=== PATIENT | male | born 1970 | race Caucasian/White ===

== ENCOUNTER 2016-10-20 15:26 | Inpatient (IN) | payer MEDICAID ==
[~2016-10-20] VITALS: Ht 175.3 cm; Wt 115.0 kg
[~2016-10-20 15:26] MED LIST: ALDACTONE100 MG PO; DILAUDID2 MG PO; ENULOSE10 G/15 ML PO; LIBRIUM25 MG PO; PROTONIX40 MG PO
[2016-10-20 16:02] LABS: BASOPHILS 0.1 % (0.0-2.0); EOSINOPHILS 0.4 % (0-7); HEMATOCRIT 51.3 % (42.0-54.0); IMMATURE GRANULOCYTES 1.1 % (0-5); LYMPHOCYTES 3.9 % (15-50); MCH 32.9 pg (26.0-34.0); MCHC 35.1 g/dL (31.0-37.0); MCV 93.8 fL (80.0-100.0); MEAN PLATELET VOLUME 10.6 fL (7.4-10.4); MONOCYTES 1.2 % (2-11); NEUTROPHILS 93.3 % (40-80); PLATELET COUNT 78 10x3/uL (130-400); RBC 5.47 10x6/uL (4.20-6.10); RDW 13.6 % (11.5-14.5); WBC 9.3 10x3/uL (4.8-10.8)
[2016-10-20 16:13] LABS: ALBUMIN 2.8 g/dL (3.4-5.0); ANION GAP 16.3 mmol/L (8-16); BILIRUBIN - TOTAL 5.16 mg/dL (0.2-1.3); CALCIUM 9.9 mg/dL (8.5-10.1); CARBON DIOXIDE 23.4 mmol/L (21.0-32.0); CREATININE - SERUM 2.4 mg/dL (0.6-1.3); POTASSIUM - SERUM 4.7 mmol/L (3.5-5.1); PROTEIN - SERUM 6.4 g/dL (6.4-8.2)
[2016-10-20 16:36] LABS: PLATELET ESTIMATE DECREASED
[2016-10-20 17:04] LABS: APPEARANCE HAZY (CLEAR); BILIRUBIN NEGATIVE (NEGATIVE); COLOR YELLOW (YELLOW); GLUCOSE 250 mg/dL (NEGATIVE); KETONE NEGATIVE (NEGATIVE); LEUKOCYTE ESTERASE TRACE (NEGATIVE); NITRITE NEGATIVE (NEGATIVE); PROTEIN TRACE mg/dL (NEGATIVE); UROBILINOGEN NORMAL (NORMAL)
[2016-10-20 17:07] LABS: BACTERIA FEW /hpf (NONE SEEN); HYALINE CAST 0-5 /lpf (NONE SEEN); MUCUS <1+ /lpf (NONE SEEN); RED CELLS - URINE 0-5 /hpf (0-5)
[2016-10-20 19:15] VITALS: BP 86/63
--- NOTE | 2016-10-20 19:55 | NUR ---
PT ARRIVED TO ROOM WITH ER STAFF. PT IS VERY LETHARGIC AND TIRED. PT DENIES ANY CURRENT PAIN BUT IS ALSO FALLING ASLEEP IN BETWEEN QUESTIONS. PUPILS ARE SLIGHTLY CONSTRICTED AT 3 BUT PERRLA INTACT. RR NONLABORED ON RA BUT O2 SAT READING 90. APPLIED 2L NC AND PTS O2 SAT JUMPED UP TO 93%. APPLIED TELEMETRY PT RUNNING SINUS TACH @102. TEMP 98.5. BP LOW AT 71/44 VIA L.ARM. RETOOK IN R.ARM AND BP 89/60. PT HAS ROCEPHIN INFUSING VIA R.HAND PIV ACCESS DRSG CDI AND SWAB CAPS PLACED. WILL CONTINUE WITH ADMISSION WORK-UP AND MONITER VITALS CLOSELY.
--- NOTE | 2016-10-20 20:24 | NUR ---
PT STILL VERY LETHARGIC AND WILL NOT STAY AWAKE ENOUGH FOR HX ASSESSMENT. PTS BP DID GO UP TO 91/58 HR 104 SINUS TACH STILL. O2 SAT 93% WITH NC @2L. PULLED NS TO FLUSH ROCEPHIN AND RUN MAINTENANCE FLUIDS. INFUSING VIA R.HAND PIV @75ML/HR. WILL CONTINUE TO MONITER VS CLOSELY AND MAKE SURE BP DOESNT DROP ANY MORE. PT DENIES ANY PAIN OR FURTHER NEEDS AND WANTS TO SLEEP. CL IN REACH, BED IN LOWEST, SIDE RAILS X2 AND BUILT IN BED ALARM ON. WILL CPOC.
[2016-10-20 21:13] VITALS: BP 101/61
[2016-10-20 21:46] VITALS: BP 89/50; BMI 36.2
--- NOTE | 2016-10-20 23:51 | NUR ---
STAT AMMONIA ORDERED R/T PTS LIVER FX AND CIRRHOSIS. PTS BP STILL LOW, LAST READING 81/57. PT IS ORIENTED X4 BUT HAS RANDOM THOUGHTS/STATEMENTS AT TIMES AND DOESNT MAKE SENSE HOWEVER MOSTLY ORIENTED AND LETHARGIC. NO FURTHER NEEDS AT THIS TIME. CL IN REACH, BED IN LOWEST, SIDE RAILS X2, WILL CTM.
[2016-10-21] VITALS (26 sets, daily range): BP systolic 78–122; BP diastolic 42–99
--- NOTE | 2016-10-21 00:16 | NUR ---
PTS AMMONIA LAB RESULTED @132 AND CRITICALLY HIGH. NOTIFIED CANAL LOCK TENDER CHIEF OPERATOR AND AWAITING ORDERS FROM ER DOCTOR. WILL CTM.
--- NOTE | 2016-10-21 01:15 | NUR ---
PT TOSSING AND TURNING IN BED C/O SEVERE ABDOMINAL PAIN REQUESTING SOMETHING FOR PAIN. NO MEDS AVAILABLE WILL CALL ORANGE PICKING SUPERVISOR AND TRY TO RECIEVE ORDER. LACTULOUS WAS ORDERED FOR CH AMMONIA LEVEL AND NOW WAITING ON THE MED TO BE AVAILABLE TO GIVE. WILL CTM CLOSELY.
--- NOTE | 2016-10-21 01:45 | NUR ---
STILL WAITING ON LACTULOUS TO BE OVERRIDDEN BY RUG SETTER AXMINSTER. PT IN SEVERE PAIN BUT NO MEDS AVAILABLE TO GIVE. WILL CTM.
--- NOTE | 2016-10-21 02:01 | NUR ---
ADMINISTERED ORDERED DOSE OF LACTULOUS. PT VERY SICK TO HIS STOMACH AND IN SEVERE PAIN. CALLED ATTENDING AMBULATORY CARE WAITING ON ANTI-NAUSEA MEDS. WILL CTM.
--- NOTE | 2016-10-21 02:04 | NUR ---
PT JUST VOMITED, STILL WAITING ON MEDICAL HISTORIAN FOR ZOFRAN TO BE OVERRODE. PROVIDED PT WITH A FAN TO COOL HIM OFF AND A COLD WASH CLOTH ON HIS FOREHEAD. CL IN REACH, FIANCE AT BEDSIDE. WILL CTM.
--- NOTE | 2016-10-21 05:44 | NUR ---
PT C/O SEVERE ABDOMINAL PAIN TOSSING AND TURNING AND BECOMING VERY AGITATED. ROLL MILL OPERATOR AWARE AND STATED SHE IS GETTING SOMETHING ORDERED. HOWEVER PTS BP STILL VERY LOW HAS NOT BEEN HIGHER THAN 80S-90S. PROVIDED NON-PHARM RELIEF MEASURES AND WILL CONTINUE WITH PLAN OF CARE.
[2016-10-21 06:25] LABS: HEMATOCRIT 43.6 % (42.0-54.0); HEMOGLOBIN 14.9 g/dL (13.5-17.5); MCH 32.6 pg (26.0-34.0); MCHC 34.2 g/dL (31.0-37.0); MCV 95.4 fL (80.0-100.0); MEAN PLATELET VOLUME 11.8 fL (7.4-10.4); PLATELET COUNT 62 10x3/uL (130-400); RBC 4.57 10x6/uL (4.20-6.10); RDW 14.1 % (11.5-14.5); WBC 22.1 10x3/uL (4.8-10.8)
[2016-10-21 06:35] LABS: ANION GAP 19.2 mmol/L (8-16); CALCIUM 8.5 mg/dL (8.5-10.1); CARBON DIOXIDE 20.6 mmol/L (21.0-32.0); CREATININE - SERUM 2.4 mg/dL (0.6-1.3); POTASSIUM - SERUM 4.8 mmol/L (3.5-5.1)
--- NOTE | 2016-10-21 06:36 | NUR ---
ADMINISTERED DEMEROL FOR SEVERE ABDOMINAL PAIN. BP STABLE AT 100/58. PT VOIDED 250 OF BLOODY COLORED URINE.
[2016-10-21 07:07] LABS: LYMPHOCYTES 5 % (15-50); MONOCYTES 3 % (2-11); NEUTROPHILS 53 % (40-80); PLATELET ESTIMATE DECREASED
--- NOTE | 2016-10-21 07:15 | NUR ---
RECEIVED REPORT. ASSUMED CARE OF PATIENT. PATIENT SITTING UP TO SIDE OF BED. ALERT/ORIENTED. PATIENT STATES SITTING UP AND LEANING OVER BEDSIDE TABLE IS THE ONLY ACTION THAT WILL RELIEVE HIS ABD PAIN. CALL LIGHT WITHIN REACH. FEMALE ASLEEP IN BEDSIDE CHAIR. NO ACUTE DISTRESS.
--- NOTE | 2016-10-21 10:30 | NUR ---
PATIENT ROLLED OVER AND PULLED IV OUT OF RIGHT HAND. 22 GAUGE CATHETER TIP INTACT. 20 GAUGE IV PLACED TO LEFT FOREARM X 1 STICK, GOOD BLOOD RETURN, EASY FLUSH. TAPED, DATED AND SECURED. IV FLUIDS INFUSING AT 125ML/HR AT THIS TIME. NO DISTRESS.
--- NOTE | 2016-10-21 11:17 | NUR ---
PATIENT TRANSFERRED TO ICU AT THIS TIME AFTER RAPID RESPONSE INITIATED.
--- NOTE | 2016-10-21 12:10 | NUR ---
RECIEVED TO ROOM 2304 VIA BED FROM [facility] 2. ALERT AND ORIENTED. STATES HIS DECISION MAKING PERSON SHOULD BE SHAGUFTA POSADAS IN THE EVENT HE CANT MAKE DECISIONS FOR HIMSELF. WITNESSED BY ESHA TUCKER. STATES HE USED IV METH 3 DAYS AGO BUT DID NOT USE ANY TODAY. STATES HE HAS A PAST "PROBLEM WITH ALCOHOL" AND THIS WAS GOING TO BE THE LAST TIME HE USED METH. ATIVAN GIVEN PER ORDER SEE MAR. [place] CATH PLACED. IVF BOLUS INFUSING. CONSULTING 'S AT BEDSIDE DISCUSSING CARE.
--- NOTE | 2016-10-21 12:15 | NUR ---
SPOKE WITH DR. BAKER FOR LINE PLACEMENT.
[2016-10-21 12:26] LABS: CKMB 12.8 U/L (0.0-3.6); CREATINE KINASE 419 UL (21-232)
[2016-10-21 12:31] LABS: TROPONIN-I 0.088 ng/mL (0.000-0.060)
--- NOTE | 2016-10-21 13:00 | NUR ---
NGT PLACED TO RIGHT NARE.
[2016-10-21 13:27] LABS: UDS - AMPHET POSITIVE QUAL (NEGATIVE); UDS - BARB NEGATIVE QUAL (NEGATIVE); UDS - BENZO POSITIVE QUAL (NEGATIVE); UDS - COCAINE NEGATIVE QUAL (NEGATIVE); UDS - METH NEGATIVE QUAL (NEGATIVE); UDS - OPIATE POSITIVE QUAL (NEGATIVE); UDS - PCP NEGATIVE QUAL (NEGATIVE); UDS - THC POSITIVE QUAL (NEGATIVE)
--- NOTE | 2016-10-21 17:15 | NUR ---
BED BATH AND LINEN CHANGE COMPLETED.
[2016-10-21 17:58] LABS: CKMB 10.9 U/L (0.0-3.6); CREATINE KINASE 324 UL (21-232)
[2016-10-21 18:01] LABS: TROPONIN-I 0.167 ng/mL (0.000-0.060)
--- NOTE | 2016-10-21 18:05 | NUR ---
DR. SUTTON NOTIFIED OF INCREASE IN TROPONIN. NO NEW ORDERS.
--- NOTE | 2016-10-21 18:40 | NUR ---
CVL PLACEMENT AT BEDSIDE WITH DR. BAKER. STAT CXR ORDERED. PT TOLERATED WELL.
--- NOTE | 2016-10-21 19:30 | NUR ---
REPORT RECEIVED AND CARE ASSUMED. INITIAL SHIFT ASSESSMENT COMPLETED. PT AAOX4. SPEECH CLEAR DENIES PAIN SCD'S APPLIED AND RATIONALE EXPLAINED. PT VERBALIZED COMPREHENSION. RIGHT IJ REMAINS UNACCESSED AWAITING CONFIRMATION OF PLACEMENT. ORDERS RECEIVED TO DECREASE NS RATE TO KVO AND WILL START BICARB GTT WHEN LINE PLACEMENT RECEIVED. NGT TO RIGHT NARE TO LIS WITH 450 OF ORANGE TINGED OUTPUT IN CANNISTER. F/C PATENT WITH CONCENTRATED COLEMAN URINE PRESENT
--- NOTE | 2016-10-21 19:45 | NUR ---
CONSENT TO USE CVL RECEIVED. SODIUM BICARB RESTARTED
--- NOTE | 2016-10-21 21:00 | NUR ---
VISITOR AT BEDSIDE. SECURITY CODE WORD ESTABLISHED. QUESTIONS ANSWERED AND UPDATE GIVEN
--- NOTE | 2016-10-21 21:50 | NUR ---
PT TRANSFERRED TO ROOM 2312. GIRLFRIEND WHO WAS HERE AT 2100 VISITING HOUR WAS TOLD OF PENDING TRANSFER
--- NOTE | 2016-10-21 22:15 | NUR ---
CVP SET UP LEVELED AND ZEROED INITIAL READING OF 19
--- NOTE | 2016-10-21 22:28 | NUR ---
CALL RECEIVED FROM FEMALE. UNABLE TO VERIFY SECCURITY CODE WORD. PT SLEEPING.
[2016-10-21 22:39] LABS: CREATINE KINASE 243 UL (21-232)
[2016-10-21 22:41] LABS: TROPONIN-I 0.325 ng/mL (0.000-0.060)
--- NOTE | 2016-10-21 23:00 | NUR ---
SHIFT REASSESSMENT COMPLETED. NO SIGNIFICANT CHANGES. PT INDEPENDENT WITH TURNING AND REPOSITIONING. CONINUE TO MONITOR B/P CLOSELY.
[2016-10-22] VITALS (26 sets, daily range): BP systolic 85–110; BP diastolic 43–85; Ht 175.3 cm; Wt 115.0 kg
--- NOTE | 2016-10-22 01:00 | NUR ---
PT SLEEPING. NO CHANGES
--- NOTE | 2016-10-22 03:00 | NUR ---
SHIFT REASSESSMENT COMPLETED. PT ADMITS TO TINGLING IN RIGHT FINGERS STATING HE HAS HAD THIS SINCE HIS HOPITAL ADMISSION. THIS IS NOT A NEW FINDING PER PT. PT GIVEN AN ICE BAG PER HIS REQUEST. RESP REG AND NONLABORED
--- NOTE | 2016-10-22 05:00 | NUR ---
LABS DRAWN FROM CVL LINE AND SENT FOR ANALYSIS
[2016-10-22 05:16] LABS: BASOPHILS 0.1 % (0.0-2.0); HEMOGLOBIN 13.3 g/dL (13.5-17.5); IMMATURE GRANULOCYTES 10.2 % (0-5); LYMPHOCYTES 6.4 % (15-50); MCH 32.3 pg (26.0-34.0); MONOCYTES 5.3 % (2-11); RBC 4.12 10x6/uL (4.20-6.10)
[2016-10-22 05:21] LABS: MCV 92.2 fL (80.0-100.0); WBC 13.6 10x3/uL (4.8-10.8)
[2016-10-22 05:22] LABS: PLATELET COUNT 38 10x3/uL (130-400)
[2016-10-22 05:24] LABS: INR 1.86 (0.85-1.17); PROTIME 21.5 SECONDS (11.6-15.0)
[2016-10-22 05:53] LABS: ALBUMIN 2.1 g/dL (3.4-5.0); BILIRUBIN - TOTAL 3.74 mg/dL (0.2-1.3); CALCIUM 7.1 mg/dL (8.5-10.1); CARBON DIOXIDE 23.3 mmol/L (21.0-32.0); MAGNESIUM - SERUM 1.1 mg/dL (1.8-2.4); PHOSPHOROUS 2.4 mg/dL (2.5-4.9); PROTEIN - SERUM 5.2 g/dL (6.4-8.2); THYROID STIMULATING HORMONE 4.06 uIU/mL (0.36-3.74)
[2016-10-22 05:54] LABS: ANION GAP 13.4 mmol/L (8-16); CREATININE - SERUM 1.3 mg/dL (0.6-1.3); POTASSIUM - SERUM 3.7 mmol/L (3.5-5.1)
--- NOTE | 2016-10-22 07:30 | NUR ---
REPORT RECD PT CARE ASSUMED. PT ANSWERS MOST QUESTIONS APPORIATLEY, ALERT AND ORIENTED. S1S2 NOTED SR PER CM. ADVENTICIOUS LUNG SOUNDS BILAT. BOWEL SOUNDS HYPO ACTIVE. SCD/[place] IN PLACE. PT HAS NGT TO LIS. PPP. VSS WILL MONITOR.
--- NOTE | 2016-10-22 09:15 | NUR ---
PT PULLED UP AND REPOSITIONED IN BED. PT TURNS WELL INDEPENDENTLY.
--- NOTE | 2016-10-22 10:47 | NUR ---
CVL DRESSING NO LONGER CLEAN AND INTACT. CVL DRESSING CHANGED WITH STERILE TECHNIQUE.
--- NOTE | 2016-10-22 12:00 | NUR ---
PT FAMILY AT BEDSIDE FOR VISITATION. UPDATE PROVIDED.
--- NOTE | 2016-10-22 14:02 | NUR ---
CLEAN SHEET AND BLANKET PROVIDED TO PT. PT RESTS QUIELY IN BED. PT STATES HE WOULD LIKE TO START PEEING ON HIS OWN. UOP HAS BEEN ACCEPTABLE. WILL START BLADDER TRAINING.
--- NOTE | 2016-10-22 15:45 | NUR ---
PT TAKEN TO HEEL COVER SOFTENER AT THIS TIME.
--- NOTE | 2016-10-22 17:40 | NUR ---
PT [place] D/C AT THIS TIME. PT ABLE TO USE URINAL INDEPENDENTLY. HENRIK CARE PROVIDED AT THIS TIME.
--- NOTE | 2016-10-22 19:15 | NUR ---
REPORT RECEIVED AND CARE ASSUMED. INITIAL SHIFT ASSESSMENT COMPLETED. PT DENIES PAIN DENIES NEEDS. DID ADMIT TO RIGHT HAND DISCOMFORT WHEN AKSED DIRECTLY ABOUT IT. AWAITING PT TO VOID. PT IS MONITORED PER STANDARD ICU PROTOCOL WITH ALL ALARMS SET. RIGHT NELSON NGT LIS. RIGHT IJ WITH DRESSING CDI DATED 10/22/16. FLUIDS PER IV FLOWSHEET AND MAR
--- NOTE | 2016-10-22 20:30 | NUR ---
DR. MELCHOR HERE TO SEE PT. DISCUSSED CONDITION OF PT. NGT TO BE CLAMPED AND PT ALLOWED TO HAVE ICE CHIPS AAT TO CLEAR LIQUIDS PER DR. MELCHOR. PT VERBALIZED COMPREHENSION OF THIS. PT DID VOID CLEAR COLEMAN URINE FREELY, ICE CHIPS PROVIDED AND NGT CLAMPED
--- NOTE | 2016-10-22 20:50 | NUR ---
RADIOLOGY AT BEDSIDE FOR ABD X-RAY. PT TOLERATED PROCEDURE WELL
--- NOTE | 2016-10-22 23:14 | NUR ---
VISITOR AT BEDSIDE FOR BRIEF VISIT
[2016-10-23] VITALS (16 sets, daily range): BP systolic 91–125; BP diastolic 60–93
--- NOTE | 2016-10-23 00:11 | NUR ---
PT SLEEPING RESP REG AND NONLABORED. CONTINUE TO MONITOR
--- NOTE | 2016-10-23 01:23 | NUR ---
PT ATTEMPTING TO GET UP WITH URGENCY OF STOOL. PT ASSISTED WITH ACTIVITY. CVP LINE DC'D. PT CONTINENT OF 500 CC MIXED LIQUID STOOL AND URINE. ASSISTED HOLLINS TO BED CALL LIGHT LEFT IN HAND AND ENCOURAGED TO CALL FOR HELP. BED ALARM REACTIVATED. PT IS TOLERATING ICE CHIPS WELL. GIVEN CUP OF WATER ENCOURAGED TO SIP SLOWLY
--- NOTE | 2016-10-23 03:00 | NUR ---
REASSESSEMENT. NO SIGNIFICANT CHANGES. PT SLEEPING EASILY AWAKEN
--- NOTE | 2016-10-23 04:00 | NUR ---
PT UP TO BSC TO VOID AND FOR BM. GAIT STEADY NO C/O. CONTINENT OF LIQUID STOOL
--- NOTE | 2016-10-23 04:15 | NUR ---
RADIOLOGY AT BEDSIDE FOR POCKET GRINDER OPERATOR
--- NOTE | 2016-10-23 05:10 | NUR ---
LABS DRAWN FROM DISTAL PORT OF CVL AND SENT TO LAB FOR ANALYSIS. PT IS SLEEPING WITH REG NONLABORED RESPIRATIONS
[2016-10-23 05:35] LABS: BASOPHILS 0.2 % (0.0-2.0); HEMATOCRIT 37.1 % (42.0-54.0); HEMOGLOBIN 12.9 g/dL (13.5-17.5); IMMATURE GRANULOCYTES 0.3 % (0-5); LYMPHOCYTES 12.1 % (15-50); MCH 32.3 pg (26.0-34.0); MCHC 34.8 g/dL (31.0-37.0); MEAN PLATELET VOLUME 12.4 fL (7.4-10.4); MONOCYTES 4.5 % (2-11); NEUTROPHILS 80.9 % (40-80); RBC 3.99 10x6/uL (4.20-6.10); WBC 9.2 10x3/uL (4.8-10.8)
[2016-10-23 05:36] LABS: PLATELET COUNT 38 10x3/uL (130-400)
[2016-10-23 06:05] LABS: CALC OSMOLALITY 283 mosm/kg (275-300); CALCIUM 7.7 mg/dL (8.5-10.1); CARBON DIOXIDE 23.8 mmol/L (21.0-32.0); CHLORIDE - SERUM 111 mmol/L (98-107); GLUCOSE 107 mg/dL (74-106); MAGNESIUM - SERUM 1.6 mg/dL (1.8-2.4); PHOSPHOROUS 1.9 mg/dL (2.5-4.9); POTASSIUM - SERUM 4.2 mmol/L (3.5-5.1); SODIUM 142 mmol/L (136-145); eGFR NON AFRICAN AMERICAN 86 mL/min (90-120)
[2016-10-23 06:09] LABS: UREA NITROGEN 15 mg/dL (7-18)
--- NOTE | 2016-10-23 06:57 | NUR ---
LABS REVIEWED ELECTROLYTE PROTOCOL FOLLOWED SEE MAR
--- NOTE | 2016-10-23 07:00 | NUR ---
REPORT RECEIVED. PATIENT IN LEFT LATERAL POSITION IN BED WITH EYES CLOSED. OPENED EYES WHEN SPOKEN TO. ASSESSMENT COMPLETED AT THIS TIME. PATIENT REQUESTED ASSISTANCE TO BSC. ASSISTANCE WAS PROVIDED. DURING THIS TIME IT WAS NOTED THAT NGT WAS SLIGHTLY OUT. DISCUSSED PUTTING IT BACK, BUT THAT IT WOULD PROBABLY COME OUT LATER SINCE HE WAS TOLERATING CLEAR LIQUIDS. AT THAT TIME, PATIENT REMOVED HIS OWN NGT. IT WAS NOT REPLACED.
[2016-10-23 09:12] LABS: HEPATITIS C ANTIBODY >11.0 (0.0-0.9)
--- NOTE | 2016-10-23 11:54 | NUR ---
PATIENT WAS OFFERED A SPONGE BATH. HE STATED HE WOULD LIKE TO TAKE A SHOWER. IT WAS STATED THAT HE MAY NO HAVE A ROOM TODAY. HE SAID HE WAS OK WITH WAITING. HE SAID ALL HE HAS DONE IS LAY IN THE BED AND HE ISN'T "THAT DIRTY". SAID HE WOULD LIKE TO GET SOME "GOOD" SLEEP SINCE THAT TUBE IS OUT OF HIS NOSE.
--- NOTE | 2016-10-23 12:33 | NUR ---
Is the patient Alert and Oriented? Yes 0 * How many steps to enter\exit or inside your home? 3 0 * PCP DR. MAYNARD 0 * Pharmacy [facility] ON [address] 0 * Preadmission Environment Home with Family 0 * ADLs Independent 0 * Equipment None 0 * List name and contact numbers for known caregivers / representatives who currently or will assist patient after discharge: FATHER: BRITTANI HOOPER [phone] KARRI': SIDDHARTHA [phone] 0 * Community resources currently utilized None 0 * Additional services required to return to the preadmission environment? No 0 * Can the patient safely return to the preadmission environment? Yes 0 * Has this patient been hospitalized within the prior 30 days at any hospital? No 0 PATIENT STATES SHE LIVES AT HOME WITH HIS FATHER, BRITTANI. HE STATES HIS FIANCE', SIDDHARTHA, WILL DRIVE HIM HOME AT DISCHARGE. HIS PCP IS DR. SUE MAYNARD. HE GETS HIS MEDS FROM [facility] ON [address]. PATIENT DENEIES USE OF ANY EQUIPMENT AND DENIES EVER HAVING HOME HEALTH CARE. PATIENT STATES THERE ARE 3 STEPS TO ENTER HIS HOME. NO DISHCARGE NEEDS IDENTIFIED AT THIS TIME.
--- NOTE | 2016-10-23 13:05 | NUR ---
PATIENT IN LEFT LATERAL POSITION. WENT TO TAKE LUNCH TRAY FROM ROOM, PATIENT HAS STILL NOT TOUCHED. HE HAS REQUESTED IT BE LEFT FOR AFTER HIS NAP. TRAY LEFT AT THIS TIME.
--- NOTE | 2016-10-23 19:30 | NUR ---
REPORT RECEIVED AND CARE ASSUMED. PT IS AWAITING A ROOM ASSIGNMENT TO BE TRANSFERRED TO THE MEDICAL FLOOR. PT IS AWARE OF THIS. INITIAL SHIFT ASSESSMENT COMPLETED. NO SIGNIFICANT FINDINGS. PT IS CURRENTLY BEING MONITORED PER STANDARD ICU PROTOCOL WITH ALL ALARMS SET
--- NOTE | 2016-10-23 21:00 | NUR ---
VISITORS AT BEDSIDE. PT VISITING FREELY. NO CONCERNS VOICED
--- NOTE | 2016-10-23 22:00 | NUR ---
HS SNACK PROVIDED PT ATE 100%.
--- NOTE | 2016-10-23 23:00 | NUR ---
VS RECHECKED. VSS. PT UP TO BSC USING CALL LIGHT TO REQUEST ASSIST. GAIT STEADY. ASSISTANCE PROVIDED WITH LINES AND CORDS TO ADVOID ENTANGLEMENT. PT CONTINENT OF LIQUID ORANGE TINGED STOOL MIXED WITH URINE. PERICARE DONE INDEPENDENTLY. CALL LIGHT LEFT IN REACH AND BED IS IN LOW POSITION. BED ALARM IS ON.
--- NOTE | 2016-10-24 01:00 | NUR ---
PT UP TO BSC SET UP PROVIDED FOR BATH. PT INDEPENDENT WITH ACTUAL BATH. COMPLETE LINEN CHANGED. PT DID OWN ORAL CARE GAIT STEADY
[2016-10-24 03:00] VITALS: BP 139/85
--- NOTE | 2016-10-24 03:00 | NUR ---
PT SLEEPING WELL. RESP REG AND NONLABORED
[2016-10-24 06:22] LABS: BASOPHILS 0.2 % (0.0-2.0); EOSINOPHILS 5.2 % (0-7); HEMATOCRIT 36.9 % (42.0-54.0); HEMOGLOBIN 12.6 g/dL (13.5-17.5); IMMATURE GRANULOCYTES 0.4 % (0-5); LYMPHOCYTES 21.8 % (15-50); MCH 32.1 pg (26.0-34.0); MCHC 34.1 g/dL (31.0-37.0); MCV 94.1 fL (80.0-100.0); MEAN PLATELET VOLUME 12.1 fL (7.4-10.4); MONOCYTES 7.1 % (2-11); NEUTROPHILS 65.3 % (40-80); RBC 3.92 10x6/uL (4.20-6.10)
[2016-10-24 06:28] LABS: PLATELET COUNT 35 10x3/uL (130-400)
[2016-10-24 06:48] LABS: CALC OSMOLALITY 277 mosm/kg (275-300); CALCIUM 7.4 mg/dL (8.5-10.1); CARBON DIOXIDE 24.7 mmol/L (21.0-32.0); CHLORIDE - SERUM 109 mmol/L (98-107); CREATININE - SERUM 0.8 mg/dL (0.6-1.3); GLUCOSE 111 mg/dL (74-106); MAGNESIUM - SERUM 1.4 mg/dL (1.8-2.4); POTASSIUM - SERUM 3.8 mmol/L (3.5-5.1); SODIUM 140 mmol/L (136-145); eGFR NON AFRICAN AMERICAN > 90 mL/min (90-120)
[2016-10-24 06:49] LABS: PHOSPHOROUS 3.7 mg/dL (2.5-4.9); UREA NITROGEN 6 mg/dL (7-18)
[2016-10-24 07:00] VITALS: BP 114/84
--- NOTE | 2016-10-24 07:09 | NUR ---
REPORT RECEIVED. PATIENT IN RIGHT LATERAL POSITION WITH EYES CLOSED. OPENED EYES WHEN SPOKEN TO. DENIES NEEDS AT THIS TIME.
--- NOTE | 2016-10-24 09:35 | NUR ---
SPOKE WITH DR LAMA ABOUT PATIENTS THRUSH. NEW ORDERS RECEIVED.
--- NOTE | 2016-10-24 10:01 | NUR ---
NUTRITION MONITORING & EVAL CHART REVIEWED. PT SLEEPING. TOLERATING REG DIET. NOTE POSSIBLE MOVE TO FLOOR. RD FOLLOWING
[2016-10-24 11:07] VITALS: BP 115/93
--- NOTE | 2016-10-24 13:25 | NUR ---
PATIENT IN SEMIFOWLERS POSITION, SNORING. WOKE TO THIS NURSES VOICE. MEDICATIONS GIVEN PER EMAR. NO NEEDS VOICED.
[2016-10-24 14:58] VITALS: BP 134/98
--- NOTE | 2016-10-24 18:10 | NUR ---
PATIENT VISITING WITH FAMILY AT THIS TIME. FIRST VISIT WHERE YOU CAN HEAR LOUD LAUGHTER FROM THE ROOM. NEEDS DENIED.
[2016-10-24 19:00] VITALS: BP 129/98
--- NOTE | 2016-10-24 19:00 | NUR ---
RECEIVED PATENT AWAKE ON BEDSIDE COMMODE, ASSESSMENT COMPLETED PER FLOWSHEET. PATIENT IS AO X4, DEMEANOR IS PLEASANT. EYES PERRLA @ 4MM WITH BRISK RESPONSE, SLIGHT YELLOWING NOTED IN SCLERA. ORAL/NASAL MUCOSA IS MOIST AND INTACT, WHITE PATCHES NOTED IS ORAL CAVITY WITH SMALL SORES. S1/S2 NOTED WITH PATIENT NSR ON TELEMETRY, RYTHMIC AND REGULAR. BREATHING IS EVEN AND EFFORTLESS, LUNG SOUNDS CLEAR ALL JONES. ABDOMEN IS SLIGHTLY DISTENDED AND SOFT, NON-TENDER TO PALPATION. PATIENT ABLE TO AMBULATE TO BEDSIDE COMMODE, 400ML STOOL/URINE MIX NOTED MIX NOTED. FULL ROM ALL EXTREMITIES, CLINICAL DIETETIC TECHNICIAN IS EQUAL BILATERAL. CAP REFILL <3 SEC, NON-TENTING TURGOR NOTED. R IJ CVL NOTED WITH TRIPLE LUMEN, SEE FLOW SHEET FOR FLUIDS INFUSING. PATIENT RECEIVING BREATHING TREATMENT FROM RESPIRATORY, NO OTHER NEEDS AT THIS TIME. ALL VSS AND WILL CONTINUE TO MONITOR.
--- NOTE | 2016-10-24 20:00 | NUR ---
PT ARRIVED FROM ICU AT 1999 TO ROOM 2004. ALERT/ORIENTED. ORIETNED TO ROOM, ASSISTED TO BED. REVEIW PLAN OF CARE.
--- NOTE | 2016-10-24 21:36 | NUR ---
HS MEDS GIVEN AFTER PT TOOK A COMLETE SHOWER. PT STATES HE FEELS SO MUCH BETTER. FAMILY NOW IN ROOM VISISITING. IVF INFUSING. IV ABT UP AND INFUSING. CPOC.
[2016-10-25] VITALS: BP 104/71
[2016-10-25 04:19] VITALS: BP 118/67
[2016-10-25 06:02] LABS: BASOPHILS 0.3 % (0.0-2.0); EOSINOPHILS 5.8 % (0-7); HEMATOCRIT 36.1 % (42.0-54.0); HEMOGLOBIN 12.5 g/dL (13.5-17.5); IMMATURE GRANULOCYTES 1.3 % (0-5); LYMPHOCYTES 35.1 % (15-50); MCH 32.4 pg (26.0-34.0); MCHC 34.6 g/dL (31.0-37.0); MCV 93.5 fL (80.0-100.0); MEAN PLATELET VOLUME 12.7 fL (7.4-10.4); MONOCYTES 11.5 % (2-11); RBC 3.86 10x6/uL (4.20-6.10); RDW 13.7 % (11.5-14.5)
[2016-10-25 06:22] LABS: WBC 3.1 10x3/uL (4.8-10.8)
[2016-10-25 06:24] LABS: PLATELET COUNT 48 10x3/uL (130-400)
[2016-10-25 06:30] LABS: ALBUMIN 2.1 g/dL (3.4-5.0); ALKALINE PHOSPHATASE 94 U/L (46-116); ALT (SGPT) 57 U/L (10-68); CALC OSMOLALITY 280 mosm/kg (275-300); CALCIUM 7.8 mg/dL (8.5-10.1); CARBON DIOXIDE 26.2 mmol/L (21.0-32.0); CHLORIDE - SERUM 107 mmol/L (98-107); CREATININE - SERUM 0.8 mg/dL (0.6-1.3); GLUCOSE 134 mg/dL (74-106); MAGNESIUM - SERUM 1.2 mg/dL (1.8-2.4); PHOSPHOROUS 4.4 mg/dL (2.5-4.9); PRO BNP 2998 pg/mL (0-125); PROTEIN - SERUM 5.4 g/dL (6.4-8.2); SODIUM 141 mmol/L (136-145); UREA NITROGEN 7 mg/dL (7-18); VANCOMYCIN - TROUGH 13.9 ug/mL (10.0-20.0); eGFR NON AFRICAN AMERICAN > 90 mL/min (90-120)
--- NOTE | 2016-10-25 07:15 | NUR ---
RECIEVED REPORT ON PATIENT, PATIENT IS SLEEPING AT THIS TIME, NAD NOTED AT THIS TIME. O2 SAT 97% ON ROOM AIR. PATIENT HAS A R IJ WITH NS INFUSING AT 20ML/HR. WILL CONT TO MONITOR PATIENT, BED IS LOW AND LOCKED. CALL LIGHT IN REACH. CPOC
[2016-10-25 07:59] VITALS: BP 121/51
[2016-10-25 08:00] LABS: INR 1.31 (0.85-1.17); PROTIME 16.1 SECONDS (11.6-15.0)
--- NOTE | 2016-10-25 09:15 | NUR ---
MORNING MEDICATION GIVEN, ASSESSMENT DONE. PATIENT HAS THRUSH NOTED IN MOUTH AND AROUND THE MOUTH COMPLAINS THAT IT IS HARD TO EVEN EAT. MOUTH WASH GIVEN, WILL TALK WITH DR LAMA ABOUT GETTING PATIENT A CREAM. CPOC
[2016-10-25] MEDS ORDERED: ONCOLOGY MOUTHWA5 ML PO (10:17)
[2016-10-25] MEDS ORDERED: FLORAJEN3 CAPS460 MG PO (10:18)
[2016-10-25] MEDS ORDERED: CHRONULAC30 ML PO (10:18)
[2016-10-25] MEDS ORDERED: DIFLUCAN150 MG PO (10:18)
[2016-10-25] MEDS ORDERED: LEVAQUIN750 MG PO (10:19)
--- NOTE | 2016-10-25 12:16 | NUR ---
PATIENT CVL IN R IJ DC WITH CATH TIP INTACT. PRESSURE HELD FOR 7 MINS. NO SIGNS OF BLEEDING. PRESSURE DRESSING APPLIED. PATIENT GIVEN DC INSTRUCTIONS AND PRESCRIPTION. TEACHING DONE. PATIENT DENIES ANY QUESTIONS AT THIS TIME. PATIENT READY FOR DC. CPOC
--- NOTE | 2016-10-25 12:18 | NUR ---
Patient Name: KHADIJAH HOOPER Encounter No: [id number] : 1970 Primary Insurance: [place] [employer] Anticipated DC Date: 10-25-2016 Planned Disposition: Home DCP follow-up note: CM ADVISED BY DISTRICT MANAGER OF INSTRUCTIONS FOR PT TO FOLLOW UP WITH OUTPATIENT DRUG ADDICTION RESOURCES. CM MET WITH PT IN ROOM, PROVIDED AND DISCUSSED LOCAL DRUG ADDICTION RESOURCES AVAILABLE; CM PROVIDED PT WITH CONTACT INFORMATION FOR HIS INSURANCE TECHNOLOGY SPECIALIST FOR ASSISTANCE AND QUESTIONS. PT REPORTS HAVING ARRANGED OUTPATIENT FOLLOW UP FOR HIMSELF ALREADY WITH A PROGRAM CALLED [facility] AND DENIED FURTHER DISCHARGE NEEDS. PT HAS A PERSON IN ROOM TO PROVIDE TRANSPORT AT DISCHARGE. Ricki Ramirez, CASE MANAGEMENT
--- NOTE | 2016-10-25 13:30 | NUR ---
patient gone for dc
--- NOTE | 2016-10-29 15:45 | EC ---
PATIENT:KHADIJAH HOOPER DATE OF SERVICE: 10/20/16 SEX: M MEDICAL RECORD: [id number] DATE OF : [birth year] LOCATION:D. D.210 AGE OF PATIENT: 46 ADMISSION DATE: 10/20/16 REFERRING PHYSICIAN: INTERPRETING PHYSICIAN: SIMRAN SIM M.D. ECHOCARDIOGRAM REPORT ECHO CHARGES 4 ECHO COMPLETE CLINICAL DIAGNOSIS: CP ECHOCARDIOGRAPHIC MEASUREMENTS (adult normal given) AC root (d.<3.7cm) 3.4 LV Septum d (<1.2 cm> 1.5 Valve Excursion 2.1 LV Septum (systole) 2.2 Left Atria (s.<4.0cm> 3.8 LVPW d(<1.2cm) 1.2 RV (d.<2.3cm) 2.9 LVPW (sytole) 2.0 LV diastole(<5.6CM) 5.0 MV E-F(>70mm/sec) LV systole 2.4 LVOT Diameter 1.7 MV exc.(>10mm) Est.ejection fraction (50-75%) Pericardial Effusion N DOPPLER: LVIT A 89.0 E 54.0 LA RVSP 61.2 LVOT 142 AOP1/2T Asc. Ao 179 RVOT 72.0 RA PA 104 AV Gradient Peak 13.0 AV Mean 5.3 AV Area 2.5 MV Gradient Peak 4.0 MV Mean 1.7 MV Area COMMENTS: Hide Worker: Christine GARCIAOE [employer] Member:Merrill Sim TAPE# PACS DATE OF SERVICE: 10/22/2016 Echocardiogram INDICATION: Chest pain. DESCRIPTION: Left ventricle demonstrates left ventricular hypertrophy. The left ventricle is not dilated. However, there is global hypokinesis noted. Estimated ejection fraction is in the order of 40%. Mitral valve is structurally normal. There is mild regurgitation seen. Left atrium is normal ECHOCARDIOGRAM REPORT [id number] KHADIJAH HOOPER size. The aortic valve is trileaflet. There is no stenosis or regurgitation seen. Right ventricle is mildly dilated. Tricuspid valve is structurally normal. There is moderate regurgitation seen. Right ventricular systolic pressure is elevated at 61 mmHg. There is no pericardial effusion seen. IMPRESSION: 1. Moderate left ventricular dysfunction with ejection fraction of 40%. 2. Mild mitral regurgitation. 3. Moderate tricuspid regurgitation with elevated pulmonary pressures. TRANSINT:[id number] Voice Confirmation ID: [id number] DOCUMENT ID: [id number] SIMRAN SIM M.D. at 1545 CC: [id number] DICTATION DATE: 10/22/161708 ASSISTANT TO THE VICE PRESIDENT: 10/22/162029 DIS IN 10/25/16 [place] [id number] [place] [id number]
--- NOTE | 2016-10-31 09:13 | CN ---
PATIENT NAME:LIAM LEON MEDICAL RECORD: [id number] : [birth year] LOCATION:[facility] D.2105 ADMIT DATE: 10/20/16 ACCOUNT: [id number] CONSULTING PHYSICIAN: OSKAR THORPE MD REFERRING PHYSICIAN: LIAM OVERTON MD DATE OF CONSULTATION: 10/21/2016 CONSULT REQUESTING PHYSICIAN: Liam Overton MD REASON FOR CONSULTATION: Septic shock, acute mental status changes, acute hypoxic respiratory failure. HISTORY OF PRESENT ILLNESS: Mr. Leon is a 46-year-old gentleman who was brought in last night with a chest pain. He was seen by Dr. Sim. This morning, the patient became less responsive and more weak and lethargic. The history was now taken mainly by talking to the nursing staff and reviewing the patient's note. PAST MEDICAL HISTORY: 1. Cirrhosis of liver for which he follows in [place]. 2. History of alcoholism. 3. History of methamphetamine abuse, which he recently used. 4. Diabetes mellitus. 5. Hypertension. PAST SURGICAL HISTORY: 1. Umbilical hernia repair. 2. Back surgery. ALLERGIES: There are no known drug allergies. MEDICATIONS: He is on Zosyn IV. His other medication is reviewed. PERSONAL AND SOCIAL HISTORY: The patient is a current everyday smoker. He is a nondrinker. FAMILY HISTORY: Significant for diabetes mellitus. PHYSICAL EXAMINATION: GENERAL: Now, the patient is very weak and lethargic. VITAL SIGNS: The blood pressure is 78-122/96, pulse is 92, respiration is 18-22, temperature 97.7, SpO2 is 90% on 2 liters. HEENT: Conjunctivae pink. Sclerae is not icteric. NECK: Supple. No JVD. CHEST: Bilateral crackles. No wheezing. HEART: Rhythm regular, normal sound, no murmur. ABDOMEN: Soft, bowel sounds present. No hepatosplenomegaly. RECTAL: Deferred. EXTREMITIES: No cyanosis, no clubbing, no pedal edema. SKIN: Warm, normal turgor. CENTRAL NERVOUS SYSTEM: The patient open eyes to by calling, but he is noncommunicative. LABORATORY DATA: CBC: The WBC is 22.1, hemoglobin is 14.9, hematocrit 43.6, the platelet count is 62. Chemistry: Sodium is 139, potassium 4.8, bicarb is CONSULT REPORT [id number] LIAM LEON 20.6, BUN is 29, creatinine 2.4. Liver enzymes: AST is 127, ALT is 83. Alkaline phosphatase 197. ABG: The pH is 7.33, pCO2 is 27.4, the pO2 is 82, bicarb of 14.7. The lactic acid level is 4.29. IMPRESSION: 1. Acute hypoxic respiratory failure which is multifactorial. 2. Possible aspiration lower lobe pneumonia. 3. Systemic inflammatory response type of syndrome with leukocytosis and hypotension. 4. Acute mental status changes secondary to sepsis as well as secondary to hepatic encephalopathy. 5. Hepatic encephalopathy. 6. Acute renal failure, possibly acute tubular necrosis. 7. Cirrhosis of liver secondary to alcoholism. 8. Leukocytosis. 9. Possible aspiration pneumonia. 10. Methamphetamine abuse with a recent intake. 11. Angina, most likely secondary to methamphetamine. 12. Lactic acidosis. 13. Aspiration pneumonia. 14. Septic shock. RECOMMENDATION: 1. We will start her bicarbonate drip. 2. Start vancomycin. Continue Zosyn. I will add Levaquin. 3. Check the blood culture and sensitivity times 2, urine culture and sensitivity. 4. I will start the septic protocol. Central line and IV fluid at 10 cm of water. 5. Follow labs and chest radiograph in the morning. Increase the lactulose to 45 cc t.i.d. Follow up labs in the morning. Chest x-ray in the morning. Discussed with the RN and RT and Dr. Overton. The critical care time is [address] Overton, once again thanks for involving me in the care of Mr. Leon. TRANSINT:[id number] Voice Confirmation ID: [id number] DOCUMENT ID: [id number] OSKAR THORPE MD at 0913 CC: LIAM OVERTON MD [id number] DICTATION DATE: 10/21/16 1215 EMPLOYMENT RECRUITER: 10/21/16 1312 DIS IN 10/25/16 [place] [id number] [facility] [place] [address]
--- NOTE | 2016-12-05 10:17 | OP ---
PATIENT NAME: KHADIJAH HOOPER MEDICAL RECORD: [id number] :72 LOCATION:D.M2 D.2105 ADMISSION DATE:10/20/16 SURGEON: MARK ANTHONY BAKER MD DATE OF OPERATION: 10/21/2016 PREOPERATIVE DIAGNOSES: 1. Cirrhosis. 2. Hypertension. 3. Urinary tract infection. 4. Chest pain. 5. Acute kidney injury. POSTOPERATIVE DIAGNOSES: 1. Cirrhosis. 2. Hypertension. 3. Urinary tract infection. 4. Chest pain. 5. Acute kidney injury. PROCEDURE: Insertion of right neck central venous line. SURGEON: Mark Anthony Baker MD OCCUPATIONAL HEALTH AND SAFETY OFFICER: None. BLOOD LOSS: Minimal. ANESTHESIA: Local. COMPLICATIONS: None. The risks, possible complications and alternatives to procedure were explained to the patient. He elects to proceed. The discussion specifically included, but was not limited to, bleeding requiring an emergency reoperation, infection, pneumothorax OPERATIVE COURSE: The patient was seen in his ICU bed. He was positioned in the Trendelenburg position. The right neck was sterilely prepped and draped. A local anesthetic was used to infiltrate the skin and subcutaneous tissues at the base of right neck. A central venous structure was accessed in an antegrade fashion. A guidewire passed easily. A small skin madonna was accomplished. A vessel dilator was used to dilate a subcutaneous tract. A central venous line was inserted over the wire. The wire was removed. All lumens flushed easily and aspirated dark, nonpulsatile blood. It was sterilely dressed. A chest x-ray is pending. TRANSINT:[id number] Voice Confirmation ID: [id number] DOCUMENT ID: [id number] OPERATIVE REPORT [id number] KHADIJAH HOOPER ROBERT MD at 1017 CC: [id number] DICTATION DATE: 10/22/16 1100 OFFICE SERVICES CLERK: 10/22/16 1118 DIS IN 10/25/16 [place] [id number] [place] [id number]
== END 2016-10-25 15:10 | disposition home or self-care (01) | DRG 871 ==
LOC: D.ER 15:26 → D.ICU 18:37 → D.M2 18:37 → D.ICU 10-21 11:23 → D.M2 10-24 20:16
PROVIDERS: Emergency Medicine; Family Medicine; Internal Medicine Gastroenterology; Internal Medicine Nephrology; Internal Medicine Pulmonary Disease; ADMIT Family Medicine
PROC: 05HM33Z Insertion of Infusion Device into Right Internal Jugular Vein, Percutaneous Approach (ICD-10-PCS; principal; 2016-10-20)
DX: A41.9 Sepsis, unspecified organism (principal); J69.0 Pneumonitis due to inhalation of food and vomit; R65.21 Severe sepsis with septic shock; J96.01 Acute respiratory failure with hypoxia; N17.9 Acute kidney failure, unspecified; B37.0 Candidal stomatitis; K70.40 Alcoholic hepatic failure without coma; F19.129 Other psychoactive substance abuse with intoxication, unspecified

== ENCOUNTER 2017-06-14 00:21 | Observation (INO) | payer MEDICAID ==
[~2017-06-14] VITALS: Ht 175.3 cm; Wt 108.6 kg
--- NOTE | ~2017-06-14 | HEMODYNAMI ---
PATIENT:KHADIJAH HOOPER MEDICAL RECORD: [id number] : 72 [facility] D.2122 [id number] ADMISSION DATE: 06/14/17 Generatedon:06/14/201713:27 Patient name: KHADIJAH HOOPER Patient #: [id number] SSN: DO B: 1970 Date of study: 06/14/2017 Page: Of Hemodynamic Procedure Report Patient Data Patient Demographics Procedure consent was obtained First Name: KHADIJAH Gender: Male Last Name: SANDIE : 1970 Middle Initial: D Age: 47 year(s) Patient #: [id number] Race: Additional ID: [id number] Contact details Address: [address] [place] [address] State: [place] City: [place] Zip code: [address] Admission Admission Data Admission Date: 06/14/2017 Admission Time: 1:53 Arrival Date: 06/14/2017 Arrival Time: 1:53 Admit Source: Other Insurance Payor: Medicaid Room #: D.2122 Height (in.): 69 BSA: 2.21 (m2) Height (cm.): 175.26 BMI: 34.56 (kg/m2) Weight (lbs.): 234 Weight (kg.): 106.14 Lab Results Lab Result Date: 06/14/2017 Lab Result Time: 0:00 Biochemistry Name Units Result Min Max BUN mg/dl 11 --(-*--)-- 7 18 Creatinine mg/dl 0.9 --(-*--)-- 0.6 1.3 CBC Name Units Result Min Max Hemoglobin g/dl 14.7 --(-*--)-- 13.5 17.5 Procedure Procedure Types Cath Procedure Diagnostic Procedure C LH w/Coronaries Miscellaneous Procedures Moderate Sedation up to 30 minutes Procedure Description Procedure Date Procedure Date: 06/14/2017 Procedure Start Time: 13:04 Procedure End Time: 13:21 Procedure Staff Name Function Jonathan Sim MD Performing Physician Marcia Cardenas RN Nurse Miriam Cavazos RT Scrub Barbara Mary RT Scrub Kellen Myers RT Monitor Procedure Data Cath Procedure Fluoroscopy Diagnostic fluoroscopy Total fluoroscopy Time: 1.8 time: 1.8 min min Diagnostic fluoroscopy Total fluoroscopy dose: 606 dose: 606 mGy mGy Contrast Material Contrast Material Type Amount (ml) Isovue 300 54 Entry Location Entry Primary Successful Side Size Upsize Upsize Entry Closure Baca ccessful Closure Location (Fr) 1 (Fr) 2 (Fr) Remarks Device Remarks Radial Right 6 Fr Mechanical artery Short Compression Estimated blood loss: 5 ml Diagnostic catheters Device Type Used For End Catheter Placement Terumo 5Fr Phoenix 110cm Multi-vessel catheter Angiography Procedure Complications No complications Procedure Medications Medication Administration Route Dosage Oxygen NC 2 l/min Lidocaine 2% added to field 20 Heparin Flush Bag added to field 2 bags (1000units/500ml NS) 0.9% NaCl I.V. 100 ml/hr Versed I.V. 2 mg Fentanyl I.V. 100 mcg Radial Cocktail I.A. 1 syringe (Verapomil 2mg/Nitro 400mcg/Heparin 1500units) Versed I.V. 1 mg Fentanyl I.V. 50 mcg Versed I.V. 1 mg Fentanyl I.V. 50 mcg Hemodynamics Rest BSA: 2.21 (m2) O2 Consumption: Estimated: 268.1 (ml/min) O2 Consumption indexed: Estimated:121.31 (ml/min/m) Heart Rate: 72 (bpm) Pressure Samples Time Site Value (mmHg) Purpose Heart Use Rate(bpm) 13:08 LV 126/-3,10 Snapshot 84 13:09 AO 84/58(69) Pullback 75 13:09 LV 127/-1,8 Pullback 75 Gradients Valve Time Site 1 Site 2 Mean SEP/DFP Peak To Heart Use (mmHg) (sec/min) Peak Rate (mmHg) (bpm) Aortic 13:09 LV AO 23 22 43 75 127/-1,8 84/58(69) Calculations Valve P-P Mean Valve Index Valve Source Name Gradient Area Flow (cm2) Aortic 43 23 43 23 Snapshots Pre Cath Intra NCS Post Cath Vital Signs Time Heart Resp SPO2 etCO2 [id number] NIBP (mmHg) Rhythm Pain Sedatio n Rate (ipm) (%) (mmHg) (mmHg) Status Level (bpm) 12:50:29 69 21 98 0 0 154/100(123) NSR 0 (11) 10(A) , No pain 12:54:41 67 13 97 0 0 138/93(111) NSR 0 (11) 10(A) , No pain 12:58:47 76 15 97 0 0 139/93(109) NSR 0 (11) 10(A) , No pain 13:02:57 73 19 97 0 0 132/87(108) NSR 0 (11) 10(A) , No pain 13:07:07 75 15 94 0 0 121/74(94) NSR 0 (11) 9(A) , No pain 13:11:11 71 17 94 0 0 119/81(95) NSR 0 (11) 9(A) , No pain 13:15:16 69 17 98 0 0 130/69(92) NSR 0 (11) 10(A) , No pain 13:19:24 73 18 98 0 0 120/82(99) NSR 0 (11) 10(A) , No pain Medications Time Medication Route Dose Verified Delivered Reason Notes Effectiveness by by 12:57:24 Oxygen NC 2 l/min Jonathan Buffie used for Roney Cardenas RN procedure 12:57:32 Lidocaine 2% added 20ml Jonathan Jonathan for local to vial Roney Sim MD anesthetic field 12:57:39 Heparin Flush added 2 bags Jonathan Jonathan used for Bag to Roney Sim MD procedure (1000units/500ml field NS) 12:57:47 0.9% NaCl I.V. 100 Jonathan Buffie Per ml/hr Roney Cardenas RN physician 13:02:10 Versed I.V. 2 mg Jonathan Buffie for sedation Roney Cardenas RN 13:02:16 Fentanyl I.V. 100 mcg Jonathan Buffie for sedation Roney Cardenas RN 13:06:38 Radial Cocktail I.A. 1 Jonathan Jonathan for (Verapomil syringe Roney Sim MD vasodilation 2mg/Nitro 400mcg/Heparin 1500units) 13:07:45 Versed I.V. 1 mg Jonathan Buffie for sedation Roney Cardenas RN 13:07:51 Fentanyl I.V. 50 mcg Jonathan Buffie for sedation Roney Cardenas RN 13:14:51 Versed I.V. 1 mg Jonathan Buffie for sedation Roney Cardenas RN 13:14:57 Fentanyl I.V. 50 mcg Jonathan Kennedy for sedation Roney Cardenas rubber mixer Log Time Note 12:30:35 Barbara Counts RT(R) sent for patient. Start room use. 12:46:48 Time tracking: Regular hours 12:46:53 Plan of Care:Hemodynamics will remain stable., Cardiac rhythm will remain stable., Comfort level will be maintained., Respiratory function will remain adequate., Patient/ family verbilizes understanding of procedure., Procedure tolerated without complication., Recovers from procedure without complications.. 12:46:58 Patient received from Med II to CCL 1 Alert and oriented. Tansferred to table in Supine position. 12:46:59 Warm blankets applied, and sierra hugger turned on for patient comfort. 12:47:00 Correct patient and procedure confirmed by team. 12:47:01 Signed procedure consent form obtained from patient. 12:48:48 ECG and BP/O2 sat monitors applied to patient. 12:48:49 Full Disclosure recording started 12:48:53 Rhythm: sinus rhythm 12:49:24 Vital chart was started 12:53:02 H&P Date Dictated: 06/14/2017 Within 30 days and on chart.. 12:53:03 Pre-procedure instructions explained to patient. 12:53:04 Pre-op teaching completed and patient verbalized understanding. 12:53:05 Family in waiting room. 12:53:06 Patient NPO since Midnight. 12:54:22 Is the patient allergic to Iodine/contrast media? No. 12:54:23 Was the patient premedicated? No 12:54:24 Is patient on blood thinner?No 12:54:27 Patient diabetic? No. 12:54:49 Borderline; not medicated 12:54:51 If diabetic: On Metformin? No 12:54:54 Previous problem with sedation/anesthesia? No ? 12:54:56 Snore? No 12:54:57 Sleep apnea? No 12:54:58 Deviated septum? No 12:54:59 Opens mouth fully? Yes 12:55:00 Sticks out tongue? Yes 12:55:01 Airway obstruction? No ? 12:55:04 Dentures? No ? 12:55:06 Pre procedure: right dorsailis pedis pulse 1+ Palpable, but thready & weak; easily obliterated 12:55:09 Pre procedure: left dorsailis pedis pulse 2+ Normal; easily identifiable; not easily obliterated 12:55:12 Patient pain scale 5/10 ?. 12:55:20 IV patent on arrival in left forearm with 0.9% NaCl at [facility]. 12:56:42 Lab Result : BUN 11 mg/dl 12:56:42 Lab Result : Creatinine 0.9 mg/dl 12:56:42 Lab Result : Hemoglobin 14.7 g/dl 12:56:45 Lab results completed and on chart. 12:56:52 Right Radial & Right Groin area was prepped with chlora-prep and draped in sterile fashion 12:56:53 Alarms reviewed by R. N. 12:56:53 Sharps counted by scrub and verified by R.N. 12:56:54 Physician arrived 12:56:55 --------ALL STOP TIME OUT------ 12:56:55 Final Timeout: patient, procedure, and site verified with staff and physician. All members of the team are in agreement. 12:56:57 Right Radial & Right Groin site verified by team. 12:57:02 Physical assessment completed. ASA score P 2 - A patient with mild systemic disease as per Jonathan Sim MD. 12:57:06 Sedation plan: IV Moderate Sedation Versed, Fentanyl 12:57:10 Use device set Radial Dx 12:57:11 Acist Syringe opened to sterile field. 12:57:12 Medline Cath Pack opened to sterile field. 12:57:12 Bag Decanter opened to sterile field. 12:57:13 St Nithin 260cm J .035 wire opened to sterile field. 12:57:13 Acist Hand Control opened to sterile field. 12:57:13 Acist Manifold opened to sterile field. 12:57:14 Tegaderm 4 x 4 opened to sterile field. 12:57:14 MBrace Wrist Support opened to sterile field. 12:57:24 Oxygen 2 l/min NC was administered by Marcia Cardenas RN; used for procedure; 12:57:32 Lidocaine 2% 20ml vial added to field was administered by Jonathan Sim MD; for local anesthetic; 12:57:39 Heparin Flush Bag (1000units/500ml NS) 2 bags added to field was administered by Jonathan Sim MD; used for procedure; 12:57:47 0.9% NaCl 100 ml/hr I.V. was administered by Marcia Cardenas RN; Per physician; 12:58:21 Zero performed for pressure channel P1 12:58:50 Admit Source: Other 12:58:56 Arrival Date: 06/14/2017 1:53:00 AM 12:59:03 Insurance Payor : Medicaid 12:59:13 Patient Height : 69 inches 12:59:18 Patient Weight : 234 lbs 13:02:10 Versed 2 mg I.V. was administered by Marcia Cardenas RN; for sedation; 13:02:16 Fentanyl 100 mcg I.V. was administered by Marcia Cardenas RN; for sedation; 13:03:49 Baseline sample Acquired. 13:04:02 Procedure started. 13:04:11 Local anesthetic to right radial artery with Lidocaine 2% by Jonathan Sim MD.INITIAL ACCESS ONLY 13:04:33 A Ter[employer]o 5Fr Phoenix 110cm catheter was advanced over the wire and used for Multi-vessel Angiography. 13:05:42 A 6 Fr Short sheath was inserted into the Right Radial artery 13:06:38 Radial Cocktail (Verapomil 2mg/Nitro 400mcg/Heparin 1500units) 1 syringe I.A. was administered by Jonathan Sim MD; for vasodilation; 13:07:45 Versed 1 mg I.V. was administered by Marcia Cardenas RN; for sedation; 13:07:51 Fentanyl 50 mcg I.V. was administered by Marcia Cardenas RN; for sedation; 13:08:23 LV hemodynamics recorded. 13:08:24 LV gram done using STOLL 13:08:27 Injector settings: Ml/sec: 5, Volume: 15, 13:08:52 EF : 55 % 13:09:31 LCA angiography performed. 13:09:34 Injector settings: Ml/sec: 3, Volume: 6, 13:10:55 RCA angiography performed. 13:11:03 Injector settings: Ml/sec: 3, Volume: 6, 13:14:51 Versed 1 mg I.V. was administered by Marcia Cardenas RN; for sedation; 13:14:57 Fentanyl 50 mcg I.V. was administered by Marcia Cardenas RN; for sedation; 13:18:58 Catheter removed. 13:19:22 Terumo TR Band Standard opened to sterile field. 13:19:31 Sheath removed intact; hemostasis achieved with Mechanical Compression to the Right Radial artery. 13:19:33 Procedure ended.(Physican Out) 13:20:15 Fluoroscopy time 01.80 minutes. 13:20:26 Fluoroscopy dose: 606 mGy 13:20:26 Flurop Dose total: 606 13:20:42 Contrast amount:Isovue 300 54ml. 13:20:44 Sharps counted by scrub and verified by R.N. 13:20:47 TR band inflated with 10cc of air. 13:20:49 Insertion/operative site no bleeding no hematoma. 13:20:54 Post right radial artery:stable 13:20:55 Post Procedure Pulses reassessed and unchanged 13:20:58 Post procedure rhythm: unchanged. 13:21:01 Estimated blood loss: 5 ml 13:21:03 Post procedure instruction explained to patient.Patient verbalizes understanding. 13:21:04 Patient needs reinforcement of post procedure teaching. 13:21:25 Procedure type changed to Cath procedure, Diagnostic procedure, LHC, LHC w/Coronaries, Miscellaneous Procedures, Moderate Sedation up to 30 minutes 13:21:26 Procedure and supply charges have been captured, reviewed, submitted and are correct. 13:21:31 Procedure Complication : No complications 13:21:34 Vital chart was stopped 13:21:37 See physician's report for complete and final results. 13:21:39 Report given to [facility]. 13:21:42 Patient transfered to [facility] with Stretcher. 13:21:53 Procedure ended. 13:21:53 Full Disclosure recording stopped 13:22:01 End room use (Document Last) Device Usage Item Manufacture Quantity Catalog Hospital Part Current Minimal Lo t# / Name Number Charge Number Stock Stock Se rial# Code Acist Acist 1 94473 032616 595172 857767 20 Syringe Medical Systems Inc Medline Cardinal 1 [id number] 476292 08012 559383 5 Cath Health Pack Bag Microtek 1 2001S 875528 98739 178144 [address] N[address] Nithin 1 590216 574954 770065 223200 30 260cm J .035 wire Acist Acist 1 64784 272784 033893 138833 5 Hand Medical Control Systems Inc Acist Acist 1 17341 693572 037968 930841 5 Lattice Incorporated Systems Inc Tegaderm 1 1626W 021651 104268 352245 5 4 x 4 MBrace Advanced 1 140-0250-00 644970 53980 365887 5 Wrist Vascular Support Dynamics Terumo Terumo 1 AXQ30-ERM 353510 355621 881854 40 TR Band Standard Terumo Terumo 1 15-6777 710503 538730 962964 5 5Fr Phoenix 110cm catheter Signature Audit [place] Stage Time Signature Unsigned Intra-Procedure 06/14/2017 Kellen Myers 1:27:07 PM RT(R) Signatures Monitor : Kellen Myers RT Signature : Date : Time : [place] [id number] [place] [address]
[~2017-06-14 00:21] MED LIST changes: +CHRONULAC30 ML PO; +DIFLUCAN150 MG PO; +FLORAJEN3 CAPS460 MG PO; +LEVAQUIN750 MG PO; +ONCOLOGY MOUTHWA5 ML PO
[2017-06-14 00:43] LABS: BASOPHILS 0.2 % (0-2); EOSINOPHILS 2.6 % (0-7); HEMATOCRIT 40.7 % (42.0-54.0); HEMOGLOBIN 14.7 g/dL (13.5-17.5); IMMATURE GRANULOCYTES 0.2 % (0-5); MCH 34.6 pg (26.0-34.0); MCHC 36.1 g/dL (31.0-37.0); MCV 95.8 fL (80.0-100.0); MEAN PLATELET VOLUME 9.8 fL (7.4-10.4); MONOCYTES 6.7 % (2-11); NEUTROPHILS 55.3 % (40-80); RBC 4.25 10x6/uL (4.20-6.10); RDW 13.2 % (11.5-14.5); WBC 4.9 10x3/uL (4.8-10.8)
[2017-06-14 00:46] LABS: PLATELET COUNT 110 10x3/uL (130-400)
[2017-06-14 01:00] LABS: ALBUMIN 3.2 g/dL (3.4-5.0); ALKALINE PHOSPHATASE 115 U/L (46-116); ALT (SGPT) 30 U/L (10-68); BILIRUBIN - TOTAL 2.02 mg/dL (0.2-1.3); CALC OSMOLALITY 283 mosm/kg (275-300); CALCIUM 8.6 mg/dL (8.5-10.1); CARBON DIOXIDE 26.2 mmol/L (21.0-32.0); CHLORIDE - SERUM 106 mmol/L (98-107); CREATININE - SERUM 0.9 mg/dL (0.6-1.3); GLUCOSE 115 mg/dL (74-106); POTASSIUM - SERUM 3.8 mmol/L (3.5-5.1); SODIUM 142 mmol/L (136-145); UREA NITROGEN 12 mg/dL (7-18); eGFR NON AFRICAN AMERICAN > 90 mL/min (90-120)
[2017-06-14 01:11] LABS: CHOL - HDL RATIO 2.5 ratio (2.3-4.9); CHOLESTEROL, TOTAL 133 mg/dL (0-200); CKMB 2.2 U/L (0.0-3.6); CREATINE KINASE 133 UL (21-232); HDL CHOLESTEROL 53 mg/dL (32-96); LDL CHOLESTEROL 74 mg/dL (0-100); LDL-HDL RATIO 1.4 ratio (1.5-3.5); PRO BNP 50 pg/mL (0-125); TRIGLYCERIDE 30 mg/dL (30-200); TROPONIN-I < 0.017 ng/mL (0.000-0.060)
[2017-06-14 02:40] VITALS: Ht 175.3 cm; Wt 108.6 kg
[2017-06-14] MEDS ORDERED: MONOPRIL10 MG PO (04:57)
[2017-06-14] MEDS ORDERED: INDERAL 40 MG T40 MG PO (04:58)
[2017-06-14 07:00] LABS: CKMB 2.5 U/L (0.0-3.6); CREATINE KINASE 152 UL (21-232); TROPONIN-I < 0.017 ng/mL (0.000-0.060)
[2017-06-14 08:22] LABS: BASOPHILS 0.3 % (0-2); EOSINOPHILS 3.1 % (0-7); HEMATOCRIT 41.4 % (42.0-54.0); HEMOGLOBIN 14.8 g/dL (13.5-17.5); IMMATURE GRANULOCYTES 0.2 % (0-5); MCH 34.4 pg (26.0-34.0); MCHC 35.7 g/dL (31.0-37.0); MCV 96.3 fL (80.0-100.0); MEAN PLATELET VOLUME 10.3 fL (7.4-10.4); MONOCYTES 9.4 % (2-11); PLATELET COUNT 127 10x3/uL (130-400); RDW 13.4 % (11.5-14.5); WBC 5.8 10x3/uL (4.8-10.8)
[2017-06-14 08:28] LABS: CALC OSMOLALITY 289 mosm/kg (275-300); CALCIUM 8.2 mg/dL (8.5-10.1); CARBON DIOXIDE 23.7 mmol/L (21.0-32.0); CHLORIDE - SERUM 107 mmol/L (98-107); CREATININE - SERUM 0.9 mg/dL (0.6-1.3); GLUCOSE 211 mg/dL (74-106); POTASSIUM - SERUM 3.8 mmol/L (3.5-5.1); SODIUM 143 mmol/L (136-145); UREA NITROGEN 11 mg/dL (7-18); eGFR NON AFRICAN AMERICAN > 90 mL/min (90-120)
[2017-06-14 09:00] VITALS: BP 119/72
[2017-06-14 12:57] LABS: CKMB 2.2 U/L (0.0-3.6); CREATINE KINASE 159 UL (21-232)
[2017-06-14 13:03] LABS: TROPONIN-I < 0.017 ng/mL (0.000-0.060)
[2017-06-14 13:27] VITALS: BP 116/80
[2017-06-14 17:24] VITALS: BP 128/70
== END 2017-06-14 18:09 | disposition home or self-care (01) ==
LOC: D.ER 00:21 → OBSVTIME 01:53 → D.M2 01:53
PROVIDERS: Emergency Medicine; Nurse Practitioner Acute Care; ADMIT Internal Medicine Cardiovascular Disease
DX: I25.110 Atherosclerotic heart disease of native coronary artery with unstable angina pectoris (principal); I10 Essential (primary) hypertension; K70.30 Alcoholic cirrhosis of liver without ascites; Q24.5 Malformation of coronary vessels; Z72.0 Tobacco use

== ENCOUNTER 2018-01-16 14:44 | Emergency (ER) | payer MEDICAID ==
[2017-06-14 02:40] VITALS: BMI 35.3
[~2018-01-16 14:44] MED LIST changes: +INDERAL 40 MG T40 MG PO; +MONOPRIL10 MG PO
[2018-01-16 15:13] LABS: APPEARANCE HAZY (CLEAR); COLOR AMBER (YELLOW); NITRITE NEGATIVE (NEGATIVE); PROTEIN NEGATIVE (NEGATIVE)
[2018-01-16 15:19] LABS: BILIRUBIN 2+ (NEGATIVE); GLUCOSE 1000 mg/dL (NEGATIVE); KETONE NEGATIVE (NEGATIVE)
[2018-01-16 15:21] LABS: BACTERIA FEW /hpf (NONE SEEN); EPITHELIAL CELLS 0-5 /hpf (0-5); MUCUS <1+ /lpf (NONE SEEN)
[2018-01-16 15:31] LABS: UDS - AMPHET POSITIVE QUAL (NEGATIVE); UDS - BARB NEGATIVE QUAL (NEGATIVE); UDS - BENZO NEGATIVE QUAL (NEGATIVE); UDS - COCAINE NEGATIVE QUAL (NEGATIVE); UDS - OPIATE POSITIVE QUAL (NEGATIVE); UDS - PCP NEGATIVE QUAL (NEGATIVE); UDS - THC POSITIVE QUAL (NEGATIVE)
[2018-01-16 15:36] LABS: BASOPHILS 0.2 % (0-2); EOSINOPHILS 3.2 % (0-7); HEMATOCRIT 43.4 % (42.0-54.0); LYMPHOCYTES 31.1 % (15-50); MCH 34.6 pg (26.0-34.0); MCHC 36.9 g/dL (31.0-37.0); MCV 93.9 fL (80.0-100.0); MEAN PLATELET VOLUME 10.8 fL (7.4-10.4); MONOCYTES 6.3 % (2-11); NEUTROPHILS 59.2 % (40-80); PLATELET COUNT 98 10x3/uL (130-400); RBC 4.62 10x6/uL (4.20-6.10); RDW 13.8 % (11.5-14.5); WBC 4.1 10x3/uL (4.8-10.8)
[2018-01-16 15:50] LABS: ALBUMIN 2.9 g/dL (3.4-5.0); ALKALINE PHOSPHATASE 123 U/L (46-116); ALT (SGPT) 32 U/L (10-68); BILIRUBIN - TOTAL 2.93 mg/dL (0.2-1.3); CALC OSMOLALITY 288 mosm/kg (275-300); CALCIUM 8.2 mg/dL (8.5-10.1); CARBON DIOXIDE 24.4 mmol/L (21.0-32.0); CHLORIDE - SERUM 107 mmol/L (98-107); CREATININE - SERUM 0.9 mg/dL (0.6-1.3); GLUCOSE 210 mg/dL (74-106); POTASSIUM - SERUM 3.7 mmol/L (3.5-5.1); PROTEIN - SERUM 6.6 g/dL (6.4-8.2); SODIUM 143 mmol/L (136-145); UREA NITROGEN 8 mg/dL (7-18); eGFR NON AFRICAN AMERICAN > 90 mL/min (90-120)
[2018-01-16 15:55] LABS: PLATELET ESTIMATE DECREASED
== END 2018-01-16 23:42 | disposition short-term general hospital (02) ==
LOC: D.ER 14:44
PROVIDERS: Emergency Medicine
DX: R45.851 Suicidal ideations (principal); B19.20 Unspecified viral hepatitis C without hepatic coma

== ENCOUNTER → 2018-05-23 17:35 | Outpatient (CLI) | payer MEDICAID ==
[2017-06-14 02:40] VITALS: BMI 35.3
== END | disposition home or self-care (01) ==
LOC: D.MRI 17:30
DX: M48.02 Spinal stenosis, cervical region (principal)

== ENCOUNTER 2018-09-05 18:38 | Inpatient (IN) | payer MEDICAID ==
[~2018-09-05] VITALS: Ht 175.3 cm; Wt 109.1 kg
--- NOTE | ~2018-09-05 | MORECARE ---
CASE MANAGEMENT DISCHARGE SUMMARY PATIENT: KHADIJAH HOOPER UNIT: [id number] ADM DATE: 09/07/18 AGE: 48 : 72 SEX: M ROOM/BED: D.2215 AUTHOR: MARCIAL CLAYTON PHYSICIAN: REFERRING PHYSICIAN: VERNON VIERA DO DATE OF SERVICE: 09/09/18 Discharge Plan Patient Name: KHADIJAH HOOPER [facility] [facility] 1970 Planned Disposition: Home Anticipated Discharge Date: Discharge Date: Expected LOS: Initial Reviewer: [email or web address] Initial Review Date: 09/05/2018 Generated: 09/09/18 10:15 am DCPIA - Discharge Planning Initial Assessment Updated by [email or web address]: Silva Aguirre on 09/09/18 9:12 am * Is the patient Alert and Oriented? Yes * How many steps to enter\exit or inside your home? * PCP [facility] * Pharmacy [facility] * Preadmission Environment Home Alone * ADLs Independent * Equipment None * List name and contact numbers for known caregivers / representatives who currently or will assist patient after discharge: DO (NEIGHBOR) * Verbal permission to speak to the caregivers and representatives has been obtained from the patient. N/A * Community resources currently utilized None * Additional services required to return to the preadmission environment? Yes * Can the patient safely return to the preadmission environment? Yes * Has this patient been hospitalized within the prior 30 days at any hospital? No Last DP export: 09/09/18 8:06 a Patient Name: KHADIJAH HOOPER Page 11372 at 0915 All edits/amendments must be made on the electronic document DICTATION DATE: 09/09/18913 RETURNED MATERIALS INSPECTOR: ULISSES 09/09/18913 RPT#: [id number] DC DATE: STATUS: ADM IN [facility] [address] [place] [address] END OF REPORT
--- NOTE | ~2018-09-05 | MORECARE ---
CASE MANAGEMENT DISCHARGE SUMMARY PATIENT: KHADIJAH HOOPER UNIT: [id number] ADM DATE: 09/07/18 AGE: 48 : 72 SEX: M ROOM/BED: D.2215 AUTHOR: MARCIAL CLAYTON PHYSICIAN: REFERRING PHYSICIAN: VERNON VIERA DO DATE OF SERVICE: 09/09/18 Discharge Plan Patient Name: KHADIJAH HOOPER Facility: [facility]:[place] : 1970 Planned Disposition: Home Anticipated Discharge Date: Discharge Date: Expected LOS: Initial Reviewer: [email or web address] Initial Review Date: 09/05/2018 Generated: 09/09/18 10:31 am Comments DCP- Discharge Planning Updated by [email or web address]: Silva Aguirre on 09/09/18 8:[address] Patient Name: KHADIJAH HOOPER Admission Status: ER Accout number: [id number] Admission Date: 09-07-2018 : 1970 Admission Diagnosis: Attending: VERNON VIERA Current LOS: 2 Anticipated DC Date: Planned Disposition: Home Primary Insurance: MEDICAID [id number] Discharge Planning Comments: CM met with patient to assess discharge planning needs. Patient stated that he lives independently in [place] and plans to return there today when he is discharged. Mary (neighbor) will be the one to take him home and he lives with her dad at night but stays at her home during the day. He states it is safe to return there. He will need a walker at discharge, I have ordered one from [facility] and they will deliver it to the hospital before he leave. He refuses home health. Cm will continue to follow and assist as needed Forms Designer: Silva Aguirre DCPIA - Discharge Planning Initial Assessment Updated by [email or web address]: Silva Aguirre on 09/09/18 9:12 am * Is the patient Alert and Oriented? Yes * How many steps to enter\exit or inside your home? * PCP [facility] * Pharmacy [facility] * Preadmission Environment Home Alone * ADLs Independent * Equipment None * List name and contact numbers for known caregivers / representatives who currently or will assist patient after discharge: DO (LUCRECIA) * Verbal permission to speak to the caregivers and representatives has been obtained from the patient. N/A * Community resources currently utilized None * Additional services required to return to the preadmission environment? Yes * Can the patient safely return to the preadmission environment? Yes * Has this patient been hospitalized within the prior 30 days at any hospital? No Last DP export: 09/09/18 8:15 a Patient Name: KHADIJAH HOOPER Page [id number] at 0932 All edits/amendments must be made on the electronic document DICTATION DATE: 09/09/18930 HI LO DRIVER: ULISSES 09/09/18930 RPT#: [id number] DC DATE: STATUS: ADM IN [facility] [address] [place] [address] END OF REPORT
--- NOTE | ~2018-09-05 | MORECARE ---
CASE MANAGEMENT DISCHARGE SUMMARY PATIENT: KHADIJAH HOOPER UNIT: [id number] ADM DATE: 09/05/18 AGE: 48 : 72 SEX: M ROOM/BED: D.2215 AUTHOR: MARCIAL CLAYTON PHYSICIAN: REFERRING PHYSICIAN: VERNON VIERA DO DATE OF SERVICE: 09/06/18 Discharge Plan Patient Name: KHADIJAH HOOPER [facility] [facility] 1970 Planned Disposition: Anticipated Discharge Date: Discharge Date: Expected LOS: Initial Reviewer: [email or web address] Initial Review Date: 09/05/2018 Generated: 09/06/18 3:21 pm Patient Name: KHADIJAH HOOPER Page 96088 at 1422 All edits/amendments must be made on the electronic document DICTATION DATE: 09/06/18 142 BENCH PATTERNMAKER METAL: ULISSES 09/06/18 142 RPT#: [id number] DC DATE: STATUS: ADM IN [facility] [address] [place] [address] END OF REPORT
--- NOTE | ~2018-09-05 | MORECARE ---
CASE MANAGEMENT DISCHARGE SUMMARY PATIENT: KHADIJAH HOOPER UNIT: [id number] ADM DATE: 09/07/18 AGE: 48 : 72 SEX: M ROOM/BED: D.2215 AUTHOR: MARCIAL CLAYTON PHYSICIAN: REFERRING PHYSICIAN: VERNON VIERA DO DATE OF SERVICE: 09/10/18 Discharge Plan Patient Name: KHADIJAH HOOPER Facility: [facility]:[place] : 1970 Planned Disposition: Home Anticipated Discharge Date: Discharge Date: 09/09/2018 Expected LOS: Initial Reviewer: [email or web address] Initial Review Date: 09/05/2018 Generated: 09/10/18 11:32 am Comments DCP- Discharge Planning Updated by [email or web address]: Silva Aguirre on 09/09/18 12:[address] Patient will be discharging home today, walker at bedside. His ride can not pick him up so transportation will be provided via Taxi. It will cost 90.00 and it was approved by Margret Eckert RN. Catie TUCKER will call the taxi when ready for discharge DCP- Discharge Planning Updated by [email or web address]: Silva Aguirre on 09/09/18 8:[address] Patient Name: KHADIJAH HOOPER Admission Status: ER Accout number: [id number] Admission Date: 09-07-2018 : 1970 Admission Diagnosis: Attending: VERNON VIERA Current LOS: 2 Anticipated DC Date: Planned Disposition: Home Primary Insurance: MEDICAID [place] Discharge Planning Comments: CM met with patient to assess discharge planning needs. Patient stated that he lives independently in [place] and plans to return there today when he is discharged. Mary (neighbor) will be the one to take him home and he lives with her dad at night but stays at her home during the day. He states it is safe to return there. He will need a walker at discharge, I have ordered one from [facility] and they will deliver it to the hospital before he leave. He refuses home health. Cm will continue to follow and assist as needed Speed Operator: Silva Aguirre DCPIA - Discharge Planning Initial Assessment Updated by [email or web address]: Silva Aguirre on 09/09/18 9:12 am * Is the patient Alert and Oriented? Yes * How many steps to enter\exit or inside your home? * PCP [facility] * Pharmacy [facility] * Preadmission Environment Home Alone * ADLs Independent * Equipment None * List name and contact numbers for known caregivers / representatives who currently or will assist patient after discharge: DO (NEIGHBOR) * Verbal permission to speak to the caregivers and representatives has been obtained from the patient. N/A * Community resources currently utilized None * Additional services required to return to the preadmission environment? Yes * Can the patient safely return to the preadmission environment? Yes * Has this patient been hospitalized within the prior 30 days at any hospital? No Last DP export: 09/09/18 1:03 p Patient Name: KHADIJAH HOOPER Page 96617 at 1032 All edits/amendments must be made on the electronic document DICTATION DATE: 09/10/18 1032 DEVELOPMENT PROFESSIONAL: ULISSES 09/10/18 1032 RPT#: [id number] DC DATE:09/09/18 STATUS: DIS IN [facility] [address] [place] [address] END OF REPORT
--- NOTE | ~2018-09-05 | MORECARE ---
CASE MANAGEMENT DISCHARGE SUMMARY PATIENT: KHADIJAH HOOPER UNIT: [id number] ADM DATE: 09/07/18 AGE: 48 : 72 SEX: M ROOM/BED: D.2215 AUTHOR: MARCIAL CLAYTON PHYSICIAN: REFERRING PHYSICIAN: VERNON VIERA DO DATE OF SERVICE: 09/09/18 Discharge Plan Patient Name: KHADIJAH HOOPER [facility] [facility] 1970 Planned Disposition: Anticipated Discharge Date: Discharge Date: Expected LOS: Initial Reviewer: [email or web address] Initial Review Date: 09/05/2018 Generated: 09/09/18 10:06 am External Providers External Provider: [facility] Next Contact Date: Service Request Date: Service Type: Resolution: Reviewer: Comments: Last DP export: 09/06/18 1:21 p Patient Name: KHADIJAH HOOPER Page 05946 at 0906 All edits/amendments must be made on the electronic document DICTATION DATE: 09/09/18905 MATERIAL HANDLING SUPERVISOR: ULISSES 09/09/18905 RPT#: [id number] DC DATE: STATUS: ADM IN [facility] [address] [place] [address] END OF REPORT
--- NOTE | ~2018-09-05 | MORECARE ---
CASE MANAGEMENT DISCHARGE SUMMARY PATIENT: KHADIJAH HOOPER UNIT: [id number] ADM DATE: 09/07/18 AGE: 48 : 72 SEX: M ROOM/BED: D.2215 AUTHOR: MARCIAL CLAYTON PHYSICIAN: REFERRING PHYSICIAN: VERNON VIERA DO DATE OF SERVICE: 09/09/18 Discharge Plan Patient Name: KHADIJAH HOOPER Facility: [facility]:[place] : 1970 Planned Disposition: Home Anticipated Discharge Date: Discharge Date: Expected LOS: Initial Reviewer: [email or web address] Initial Review Date: 09/05/2018 Generated: 09/09/18 3:02 pm Comments DCP- Discharge Planning Updated by [email or web address]: Silva Aguirre on 09/09/18 12:[address] Patient will be discharging home today, walker at bedside. His ride can not pick him up so transportation will be provided via Taxi. It will cost 90.00 and it was approved by Margret Eckert RN. Catie TUCKER will call the taxi when ready for discharge DCP- Discharge Planning Updated by [email or web address]: Silva Aguirre on 09/09/18 8:[address] Patient Name: KHADIJAH HOOPER Admission Status: ER Accout number: [id number] Admission Date: 09-07-2018 : 1970 Admission Diagnosis: Attending: VERNON VIERA Current LOS: 2 Anticipated DC Date: Planned Disposition: Home Primary Insurance: [place]ICAID [place] Discharge Planning Comments: CM met with patient to assess discharge planning needs. Patient stated that he lives independently in [place] and plans to return there today when he is discharged. Mary (neighbor) will be the one to take him home and he lives with her dad at night but stays at her home during the day. He states it is safe to return there. He will need a walker at discharge, I have ordered one from [facility] and they will deliver it to the hospital before he leave. He refuses home health. Cm will continue to follow and assist as needed Industrial Truck Mechanic: Silva Aguirre DCPIA - Discharge Planning Initial Assessment Updated by [email or web address]: Silva Aguirre on 09/09/18 9:12 am * Is the patient Alert and Oriented? Yes * How many steps to enter\exit or inside your home? * PCP [facility] * Pharmacy [facility] * Preadmission Environment Home Alone * ADLs Independent * Equipment None * List name and contact numbers for known caregivers / representatives who currently or will assist patient after discharge: DO (NEIGHBOR) * Verbal permission to speak to the caregivers and representatives has been obtained from the patient. N/A * Community resources currently utilized None * Additional services required to return to the preadmission environment? Yes * Can the patient safely return to the preadmission environment? Yes * Has this patient been hospitalized within the prior 30 days at any hospital? No Last DP export: 09/09/18 8:32 a Patient Name: KHADIJAH HOOPER Page [id number] at 1403 All edits/amendments must be made on the electronic document DICTATION DATE: 09/09/181401 STRIPPER AND PRINTER: ULISSES 09/09/181401 RPT#: [id number] DC DATE: STATUS: ADM IN [facility] [address] [place] [address] END OF REPORT
[2018-09-05 18:40] VITALS: BP 154/89
[2018-09-05 19:40] VITALS: BP 145/84
[2018-09-05 20:08] LABS: BASOPHILS 0.1 % (0-2); EOSINOPHILS 0.4 % (0-7); HEMATOCRIT 39.5 % (42.0-54.0); HEMOGLOBIN 14.5 g/dL (13.5-17.5); IMMATURE GRANULOCYTES 0.2 % (0-5); LYMPHOCYTES 8.9 % (15-50); MCH 32.8 pg (26.0-34.0); MCHC 36.7 g/dL (31.0-37.0); MCV 89.4 fL (80.0-100.0); MEAN PLATELET VOLUME 9.9 fL (7.4-10.4); MONOCYTES 3.9 % (2-11); NEUTROPHILS 86.5 % (40-80); RBC 4.42 10x6/uL (4.20-6.10); RDW 12.8 % (11.5-14.5); WBC 9.8 10x3/uL (4.8-10.8)
[2018-09-05 20:17] LABS: INR 1.36 (0.85-1.17); PLATELET COUNT 129 10x3/uL (130-400); PROTIME 16.2 SECONDS (11.6-15.0)
[2018-09-05 20:22] LABS: ALBUMIN 3.2 g/dL (3.4-5.0); ALKALINE PHOSPHATASE 147 U/L (46-116); ALT (SGPT) 28 U/L (10-68); BILIRUBIN - TOTAL 1.77 mg/dL (0.2-1.3); CALC OSMOLALITY 277 mosm/kg (275-300); CALCIUM 8.7 mg/dL (8.5-10.1); CARBON DIOXIDE 21.6 mmol/L (21.0-32.0); CHLORIDE - SERUM 103 mmol/L (98-107); CREATININE - SERUM 0.8 mg/dL (0.6-1.3); GLUCOSE 217 mg/dL (74-106); POTASSIUM - SERUM 3.9 mmol/L (3.5-5.1); PROTEIN - SERUM 7.5 g/dL (6.4-8.2); SODIUM 136 mmol/L (136-145); UREA NITROGEN 11 mg/dL (7-18); eGFR NON AFRICAN AMERICAN > 90 mL/min (90-120)
[2018-09-05 20:40] VITALS: BP 140/86
[2018-09-05 21:40] VITALS: BP 148/90
[2018-09-05 22:52] VITALS: BP 136/87
[2018-09-05 23:00] VITALS: BP 144/86
[2018-09-06] VITALS (7 sets, daily range): BP systolic 116–149; BP diastolic 63–88; Ht 175.3 cm; Wt 109.1 kg
[2018-09-06 05:16] LABS: BASOPHILS 0.1 % (0-2); EOSINOPHILS 1.1 % (0-7); HEMATOCRIT 40.2 % (42.0-54.0); HEMOGLOBIN 14.6 g/dL (13.5-17.5); IMMATURE GRANULOCYTES 0.2 % (0-5); LYMPHOCYTES 15.6 % (15-50); MCH 32.8 pg (26.0-34.0); MCHC 36.3 g/dL (31.0-37.0); MCV 90.3 fL (80.0-100.0); MEAN PLATELET VOLUME 9.6 fL (7.4-10.4); PLATELET COUNT 131 10x3/uL (130-400); RBC 4.45 10x6/uL (4.20-6.10); RDW 13.1 % (11.5-14.5); WBC 8.3 10x3/uL (4.8-10.8)
[2018-09-06 05:55] LABS: CALC OSMOLALITY 276 mosm/kg (275-300); CALCIUM 8.3 mg/dL (8.5-10.1); CARBON DIOXIDE 26.1 mmol/L (21.0-32.0); CHLORIDE - SERUM 103 mmol/L (98-107); CREATININE - SERUM 0.7 mg/dL (0.6-1.3); POTASSIUM - SERUM 4.3 mmol/L (3.5-5.1); SODIUM 137 mmol/L (136-145); UREA NITROGEN 11 mg/dL (7-18); eGFR NON AFRICAN AMERICAN > 90 mL/min (90-120)
[2018-09-06 05:56] LABS: GLUCOSE 162 mg/dL (74-106)
[2018-09-06 12:08] LABS: ERYTHROCYTE SEDIMENTATION RATE 0 mm/hr (0-15)
[2018-09-07] VITALS: BP 145/85
[2018-09-07 04:00] VITALS: BP 116/73
[2018-09-07 05:31] LABS: BASOPHILS 0.1 % (0-2); EOSINOPHILS 2.5 % (0-7); HEMATOCRIT 40.4 % (42.0-54.0); HEMOGLOBIN 14.5 g/dL (13.5-17.5); IMMATURE GRANULOCYTES 0.4 % (0-5); LYMPHOCYTES 15.2 % (15-50); MCH 32.8 pg (26.0-34.0); MCHC 35.9 g/dL (31.0-37.0); MCV 91.4 fL (80.0-100.0); MEAN PLATELET VOLUME 9.5 fL (7.4-10.4); MONOCYTES 5.9 % (2-11); NEUTROPHILS 75.9 % (40-80); PLATELET COUNT 121 10x3/uL (130-400); RBC 4.42 10x6/uL (4.20-6.10); RDW 13.2 % (11.5-14.5)
[2018-09-07 05:52] LABS: ALBUMIN 3.1 g/dL (3.4-5.0); ALKALINE PHOSPHATASE 124 U/L (46-116); ALT (SGPT) 24 U/L (10-68); BILIRUBIN - TOTAL 2.84 mg/dL (0.2-1.3); CALC OSMOLALITY 275 mosm/kg (275-300); CALCIUM 8.6 mg/dL (8.5-10.1); CARBON DIOXIDE 24.5 mmol/L (21.0-32.0); CHLORIDE - SERUM 102 mmol/L (98-107); GLUCOSE 169 mg/dL (74-106); POTASSIUM - SERUM 4.1 mmol/L (3.5-5.1); PROTEIN - SERUM 7.4 g/dL (6.4-8.2); SODIUM 136 mmol/L (136-145); UREA NITROGEN 13 mg/dL (7-18)
[2018-09-07 06:01] LABS: CREATININE - SERUM 0.9 mg/dL (0.6-1.3); eGFR NON AFRICAN AMERICAN > 90 mL/min (90-120)
[2018-09-07 09:31] VITALS: BP 134/78
[2018-09-07] MEDS ORDERED: SEROQUEL50 MG PO (12:32)
[2018-09-07] MEDS ORDERED: ALDACTONE50 MG PO (12:37)
[2018-09-07] MEDS ORDERED: CYCLOBENZAPRINE10 MG PO (12:38)
[2018-09-07] MEDS ORDERED: GLUCOPHAGE500 MG PO (12:39)
[2018-09-07 15:37] LABS: AMYLASE - SERUM 71 U/L (25-115); LIPASE 276 U/L (73-393)
[2018-09-07 20:00] VITALS: BP 114/78
[2018-09-08] VITALS: BP 124/81
[2018-09-08 04:00] VITALS: BP 121/79
[2018-09-08 04:30] LABS: BASOPHILS 0.1 % (0-2); EOSINOPHILS 0.7 % (0-7); HEMATOCRIT 38.5 % (42.0-54.0); HEMOGLOBIN 13.9 g/dL (13.5-17.5); IMMATURE GRANULOCYTES 0.2 % (0-5); LYMPHOCYTES 16.6 % (15-50); MCH 32.8 pg (26.0-34.0); MCHC 36.1 g/dL (31.0-37.0); MCV 90.8 fL (80.0-100.0); MEAN PLATELET VOLUME 10.3 fL (7.4-10.4); MONOCYTES 8.5 % (2-11); NEUTROPHILS 73.9 % (40-80); PLATELET COUNT 122 10x3/uL (130-400); RBC 4.24 10x6/uL (4.20-6.10); RDW 13.6 % (11.5-14.5); WBC 11.7 10x3/uL (4.8-10.8)
[2018-09-08 05:02] LABS: ALBUMIN 2.8 g/dL (3.4-5.0); ALKALINE PHOSPHATASE 112 U/L (46-116); ALT (SGPT) 30 U/L (10-68); AMYLASE - SERUM 81 U/L (25-115); BILIRUBIN - TOTAL 2.73 mg/dL (0.2-1.3); CALCIUM 8.3 mg/dL (8.5-10.1); CARBON DIOXIDE 22.6 mmol/L (21.0-32.0); CHLORIDE - SERUM 101 mmol/L (98-107); CREATININE - SERUM 1.1 mg/dL (0.6-1.3); GLUCOSE 142 mg/dL (74-106); LIPASE 752 U/L (73-393); POTASSIUM - SERUM 3.8 mmol/L (3.5-5.1); PROTEIN - SERUM 7.1 g/dL (6.4-8.2); SODIUM 136 mmol/L (136-145); eGFR NON AFRICAN AMERICAN 76 mL/min (90-120)
[2018-09-08 05:06] LABS: CALC OSMOLALITY 277 mosm/kg (275-300); UREA NITROGEN 24 mg/dL (7-18)
[2018-09-08 08:45] VITALS: BP 119/78
[2018-09-08 13:07] VITALS: BP 129/85
[2018-09-08] MEDS ORDERED: NORCO 7.5/325 T1 TA1 PO (16:07)
[2018-09-08 17:30] VITALS: BP 135/83
[2018-09-08 20:00] VITALS: BP 126/74
[2018-09-09 05:08] LABS: BASOPHILS 0.2 % (0-2); HEMATOCRIT 36.7 % (42.0-54.0); HEMOGLOBIN 12.9 g/dL (13.5-17.5); IMMATURE GRANULOCYTES 0.2 % (0-5); LYMPHOCYTES 24.7 % (15-50); MCH 32.3 pg (26.0-34.0); MCHC 35.1 g/dL (31.0-37.0); MONOCYTES 8.1 % (2-11); NEUTROPHILS 63.8 % (40-80); RBC 3.99 10x6/uL (4.20-6.10); RDW 13.7 % (11.5-14.5)
[2018-09-09 05:25] VITALS: BP 106/74
[2018-09-09 05:32] LABS: PLATELET COUNT 81 10x3/uL (130-400)
[2018-09-09 05:41] LABS: ALBUMIN 2.5 g/dL (3.4-5.0); ALKALINE PHOSPHATASE 103 U/L (46-116); CARBON DIOXIDE 23.7 mmol/L (21.0-32.0); CHLORIDE - SERUM 105 mmol/L (98-107); CREATININE - SERUM 0.9 mg/dL (0.6-1.3); GLUCOSE 143 mg/dL (74-106); LIPASE 81 U/L (73-393); POTASSIUM - SERUM 3.5 mmol/L (3.5-5.1); PROTEIN - SERUM 6.5 g/dL (6.4-8.2); SODIUM 139 mmol/L (136-145); eGFR NON AFRICAN AMERICAN > 90 mL/min (90-120)
[2018-09-09 05:47] LABS: ALT (SGPT) 51 U/L (10-68); AMYLASE - SERUM 22 U/L (25-115); CALC OSMOLALITY 279 mosm/kg (275-300); UREA NITROGEN 13 mg/dL (7-18)
[2018-09-09 07:21] LABS: PLATELET ESTIMATE DECREASED
[2018-09-09] MEDS ORDERED: CHRONULAC30 ML PO (10:26)
[2018-09-09 13:25] VITALS: BP 149/87
[2018-09-10 16:16] LABS: SPE - A/G RATIO 1.2 (0.7-1.7); SPE - ALBUMIN 3.8 g/dL (2.9-4.4); SPE - ALPHA-1 GLOBULIN 0.1 g/dL (0.0-0.4); SPE - ALPHA-2 GLOBULIN 0.7 g/dL (0.4-1.0); SPE - GAMMA GLOBULIN 1.4 g/dL (0.4-1.8); SPE - M-SPIKE Not Observed g/dL (Not Observed)
== END 2018-09-09 14:05 | disposition home or self-care (01) | DRG 534 ==
LOC: D.ER 18:38 → OBSVTIME 22:23 → D.MS 22:23
PROVIDERS: Family Medicine; Internal Medicine Nephrology; Orthopaedic Surgery
PROC: 2W3PX1Z Immobilization of Left Upper Leg using Splint (ICD-10-PCS; principal; 2018-09-06)
DX: S72.415A Nondisplaced unspecified condyle fracture of lower end of left femur, initial encounter for closed fracture (principal); X50.1XXA Overexertion from prolonged static or awkward postures, initial encounter; I11.0 Hypertensive heart disease with heart failure; I50.9 Heart failure, unspecified; K75.9 Inflammatory liver disease, unspecified; K70.30 Alcoholic cirrhosis of liver without ascites; F10.10 Alcohol abuse, uncomplicated; F15.10 Other stimulant abuse, uncomplicated; F12.10 Cannabis abuse, uncomplicated; Z72.0 Tobacco use

== ENCOUNTER → 2018-09-15 12:28 | Outpatient (CLI) | payer MEDICAID ==
[2018-09-06 01:22] VITALS: BMI 35.5
[~2018-09-15 12:28] MED LIST changes: +ALDACTONE50 MG PO; +CYCLOBENZAPRINE10 MG PO; +GLUCOPHAGE500 MG PO; +NORCO 7.5/325 T1 TA1 PO; +SEROQUEL50 MG PO
== END | disposition home or self-care (01) ==
LOC: D.US 12:28
DX: M79.605 Pain in left leg (principal); R22.42 Localized swelling, mass and lump, left lower limb